=== PATIENT | female | born 1940 | race Caucasian/White ===

== ENCOUNTER 2024-09-10 09:43 | Emergency (ER) | payer MEDICARE, BC, SELFPAY ==
[2024-09-10 09:52] VITALS: BMI 27.0
[2024-09-10 09:54] VITALS: BP 145/62
[2024-09-10 09:56] VITALS: BP 145/62
[2024-09-10 10:00] VITALS: BP 157/80
--- NOTE | 2024-09-10 10:12 | ED.MUSCINJ ---
HPI-Injury
General
Chief Complaint: Fall
Source: patient
Time Seen by Provider: 09/10/24 09:58
History of Present Illness-Injury
Initial Injury comments:
84-year-old female not anticoagulated with history of dementia presents from [facility] after a fall throughout the evening. This was unwitnessed. She notes a headache. She blood coming from her head and the back. She also notes slight
neck discomfort after a fall. She denies chest pain or shortness of breath. No other complaints at this time. I spoke with her daughter who is the medical power of insurance attorney who is in the room
Past History
Past History
ED Past Medical History: None
ED Past Surgical History: None
Phy Exam
Physical Exam
Physical Exam:
General: Pleasant female no acute respiratory distress
HEENT: Normocephalic hematoma with scalp abrasion and subtle laceration noted to the posterior lateral left scalp. Pupils equal round reactive to light
Neurologic exam: Alert and oriented to person and place no facial asymmetry good strength to the upper and lower extremities
Heart: Regular rate and rhythm
Lungs: Clear no wheeze
Musculoskeletal exam: Mild diffuse paraspinous tenderness about the cervical spine. Good range of motion all extremities
Abdomen is soft nontender nondistended
Injury Course
Orders/Labs/Results
Orders:
Orders
09/10/24 10:10
CT Cervical Spine W/o Iv Contr Urgent
Comment:
Reason For Exam: fall
CT Head W/o Iv Contrast Urgent
Comment:
Reason For Exam: fall
MDM/Problems Addressed
Differential Diagnosis Includes:
Fall. Scalp abrasion with hematoma with ongoing bleeding may require skin fredrick to provide hemostasis. CT of the head and cervical spine ordered for evaluation of skull fracture versus intracranial hemorrhage or cervical spine injury
*Critical Care Note
Total Time (30-74mins, 75-104mins- exclusive of procedures): Not Applicable
Update Note
Update Note:
CT of head and cervical spine both negative for acute traumatic injuries. The wound on the left posterior scalp was cleansed with saline and closed with skin fredrick after anesthetizing with 1% lidocaine with epinephrine. 4 fredrick were required.
A dressing was applied after she was cleaned up. Stable for discharge
ED Attending Note
-
Portions of this chart may have been created with voice recognition software.� Occasional wrong word or��sound alike� substitutions may have occurred due to the inherent limitations of voice recognition software.
Discharge Plan
Departure
Patient Disposition: Home (Routine Discharge)
Date of Disposition: 09/10/24
Time of Disposition: 12:28
Patient with high blood pressure during this ER visit?: No
Discharge Problem:
Fall, Laceration
Instructions: Laceration Repair With Fredrick (DC)
Referrals:
Seferino Pond MD [Family Provider] -
Activity Restrictions/Additional Instructions:
Please have fredrick removed in 7 days. You may ice the sore spot or take Tylenol for pain. Change dressing as needed.
Interventions
Interventions:
*Risk Screen - Suicide Last Done: 09/10/24 10:01
*General Assessment Last Done: 09/10/24 10:01
*Neglect/Abuse Screening Last Done: 09/10/24 10:09
*ED COVID-19 Vaccine History Last Done: 09/10/24 10:01
ED-Musculoskeletal Assessment Last Done: 09/10/24 11:04
ED- Neurological Assessment Last Done: 09/10/24 10:37
ED-Skin Assessment Last Done: 09/10/24 10:38
Discharge Date and Time
Print Language: INDONESIAN
[2024-09-10 11:03] VITALS: BP 134/69
[2024-09-10 12:00] VITALS: BP 127/59
[2024-09-10 13:00] VITALS: BP 146/62
== END 2024-09-10 15:41 | disposition home or self-care (01) ==
LOC: EMR 09:43
PROVIDERS: EMERGENCY PHYSICIAN Emergency Medicine; FAMILY PHYSICIAN Family Medicine
DX: S01.01XA Laceration without foreign body of scalp, initial encounter (principal); W19.XXXA Unspecified fall, initial encounter; F03.90 Unspecified dementia, unspecified severity, without behavioral disturbance, psychotic disturbance, mood disturbance, and anxiety
CPT/HCPCS: 99284; 12001; 70450; 72125

== ENCOUNTER 2024-11-19 12:25 | Emergency (ER) | payer OTHER, SELFPAY ==
[2024-11-19 12:27] VITALS: BP 160/71
[2024-11-19 13:26] VITALS: BMI 26.2
--- NOTE | 2024-11-19 13:26 | ED.GENMED ---
History of Present Illness
General
Chief Complaint: Back Pain
Time Seen by Provider: 11/19/24 13:13
History of Present Illness
History of Present Illness:
84-year-old female with history of dementia presents the emergency department from [facility] for evaluation of low back pain and buttock pain after a fall 3 days ago. Was reportedly a standing height fall onto her buttocks. She was able
to ambulate up until last night when she was unable to get up out of bed. History is somewhat limited due to her mental status but she reportedly was working with physical therapy yesterday and symptoms seem to transiently improved. No lower
extremity paresthesias reported. No history of compression fracture of the lumbar spine
Past History
Past History
ED Past Medical History: None
ED Past Surgical History: None
Review of Systems
Review of Systems
Allergies reviewed?: Yes
All Other Systems: ROS reviewed and negative except as documented in HPI and ROS
Phy Exam
Physical Exam
Physical Exam:
GEN: Well appearing, NAD, WDWN
HEENT: Oral mucosa moist, no scleral icterus
Cardiac: Regular rate
Lung: No respiratory distress, no tachypnea
MSK: No gross deformity or injuries. No midline reproducible tenderness to the lumbar spine or paraspinous musculature. Bilateral hip range of motion is normal with no elicited pain. Lower extremity strength 5 out of 5 in all romero
Skin: Good color, no pallor or jaundice, no rashes
Neuro: AO x3, moves all extremities freely
Psych: Calm, cooperative
Course
Orders/Labs/Results
Orders:
Orders
11/19/24 13:26
CR Lumbar Spine Comp Min 4 Vw* Urgent
Comment:
Reason For Exam: fall
CR Pelvis - 1 Or 2 Views Urgent
Comment:
Reason For Exam: fall
11/19/24 14:51
Hydrocodone 5/APAP 325 [Groom 5/325] 1 tablet PO NOW STA
Ibuprofen [Motrin] 400 mg PO NOW STA
11/19/24 15:33
Treatment- Walker ONCE
11/19/24 15:37
Pt Eval And Treat Urgent
Activity Level: Ambulate
11/19/24 15:53
Complete Blood Count/No Diff Urgent
Comprehensive Metabolic Panel Urgent
Abnormal Lab Results
11/19/24
15:53
RBC 3.74 L 10^6/uL
(4.20-5.40)
Hgb 10.7 L g/dL
(12.0-16.0)
Hct 31.8 L %
(37.0-47.0)
RDW 14.6 H %
(11.5-14.5)
BUN 18 H mg/dl
(7-17)
Glucose 112 H mg/dl
(70-99)
11/19/24 15:53
11/19/24 15:53
Vital Signs
Initial and Last Documented VS:
Initial Vital Signs
Temp Pulse Resp BP Pulse Ox
99.2 F 59 16 160/71 97
11/19/24 12:27 11/19/24 12:27 11/19/24 12:27 11/19/24 12:27 11/19/24 12:27
Last Documented Vital Signs
Temp Pulse Resp BP Pulse Ox
99.2 F 59 16 160/71 97
11/19/24 12:27 11/19/24 12:27 11/19/24 12:27 11/19/24 12:27 11/19/24 12:27
MDM/Problems Addressed
MDM/Problems Addressed:
84-year-old female presents for back pain after fall with difficulty ambulating. She is found to have a presumably new L2 compression fracture. Evaluated in the ED after pain medication and was able to tolerate walker assisted ambulation. No
indication for admission. Recommend PT which she can obtain at her current nursing facility.
*Critical Care Note
Total Time (30-74mins, 75-104mins- exclusive of procedures): Not Applicable
ED Attending Note
-
Portions of this chart may have been created with voice recognition software.� Occasional wrong word or��sound alike� substitutions may have occurred due to the inherent limitations of voice recognition software.
Discharge Plan
Departure
Patient Disposition: Home (Routine Discharge)
Date of Disposition: 11/19/24
Time of Disposition: 16:40
Patient with high blood pressure during this ER visit?: No
Discharge Problem:
Compression fracture of L2
Instructions: Vertebral Compression Fracture ED
Prescriptions:
New
hydrocodone-acetaminophen 5-325 mg tablet
1 tab PO Q8H PRN (Reason: Pain) Qty: 8 0RF
No Action
quetiapine 25 mg Tablet
25 mg PO HSPRN PRN (Reason: anxiety)
citalopram 20 mg Tablet
20 mg PO DAILY
Referrals:
Seferino Pond MD [Family Provider] -
Activity Restrictions/Additional Instructions:
Naima has a compression fracture of her L2 vertebrae. She should work with physical therapy as indicated to improve her function. She may require repeat x-ray in 4 to 6 weeks if pain is not improving
Interventions
Interventions:
*Risk Screen - Suicide Last Done: 11/19/24 12:27
*General Assessment Last Done: 11/19/24 13:26
*Neglect/Abuse Screening Last Done: 11/19/24 12:27
ED-Musculoskeletal Assessment Last Done: 11/19/24 13:33
Discharge Date and Time
Print Language: OCCITAN
[2024-11-19] MEDS: NORCO 5/325 1 TABLET PO (14:56)
[2024-11-19] MEDS: MOTRIN 400 MG PO (14:56)
[2024-11-19 16:06] LABS: Hematocrit 31.8 % (37.0-47.0); Hemoglobin 10.7 g/dL (12.0-16.0); Mean Corp Hgb Conc. 33.6 g/dL (33.0-37.0); Mean Corpuscular Hgb 28.6 pg (27.0-31.0); Red Blood Cell Count 3.74 10^6/uL (4.20-5.40); Red Cell Dist. Width 14.6 % (11.5-14.5); White Blood Cell Count 6.7 10^3/uL (4.8-10.8)
[2024-11-19 16:26] LABS: ALT (SGPT) 22 U/L (0-35); AST (SGOT) 27 U/L (14-36); Albumin 4.5 g/dl (3.5-5.0); Alkaline Phosphatase 75 U/L (38-126); Blood Urea Nitrogen 18 mg/dl (7-17); Calcium 9.6 mg/dl (8.4-10.2); Carbon Dioxide 26 mmol/L (22-30); Chloride 105 mmol/L (98-107); Estimated Creatinine Clearance 57 ml/min; Glucose 112 mg/dl (70-99); Potassium 3.9 mmol/L (3.5-5.1); Sodium 137 mmol/L (135-145); Total Bilirubin 1.1 mg/dl (0.2-1.3); Total Protein 6.5 g/dl (6.3-8.2); eGFR > 60.00
[2024-11-19 16:42] LABS: Mean Platelet Volume 13.4 fL (7.4-10.4); Platelet Count 59 10^3/uL (130-400)
== END 2024-11-19 16:53 | disposition home or self-care (01) ==
LOC: EMR 12:25
PROVIDERS: Physician Assistant; EMERGENCY PHYSICIAN Emergency Medicine; FAMILY PHYSICIAN Family Medicine
DX: M48.56XA Collapsed vertebra, not elsewhere classified, lumbar region, initial encounter for fracture (principal); W19.XXXA Unspecified fall, initial encounter; F03.90 Unspecified dementia, unspecified severity, without behavioral disturbance, psychotic disturbance, mood disturbance, and anxiety
CPT/HCPCS: 99283; 72110; 72170; 80053; 85027

== ENCOUNTER 2025-01-06 05:20 | Emergency (ER) | payer OTHER, SELFPAY ==
[2025-01-06 05:31] VITALS: BP 151/59
[2025-01-06 06:01] VITALS: BP 139/55
[2025-01-06] MEDS: TYLENOL 500 MG PO (06:11)
[2025-01-06] MEDS: ADACEL 0.5 ML IM (06:13)
[2025-01-06 07:00] VITALS: BP 139/61; BMI 24.1
[2025-01-06 08:00] VITALS: BP 120/52
--- NOTE | 2025-01-06 09:46 | ED.GENMED ---
History of Present Illness
General
Chief Complaint: Fall
Source: patient
Exam Limitations: none
Time Seen by Provider: 01/06/25 05:47
Nursing documentation reviewed up to this point in time: agreed with
History of Present Illness
History of Present Illness:
This is a 84 year-old female with a past medical history of dementia, hyperlipidemia, anxiety, depression, who presents an emergency apartment a with concern of back pain and scalp pain following a fall. Patient is coming from the locked dementia
unit at [facility]. This morning, EMS reports that she was found down on the floor by staff this morning. Patient reports that she recalls slipping on water this morning in the bathroom. Patient sees that she�s unsure if she hit her head. She�s not
recall, losing consciousness. She currently knows upper back pain following the fall and mild posterior scalp pain. She denies any neck pain. She knows any abdominal pain. She has any pain in her extremities. She needs any chest pain. she�s unsure
of her tetanus status.
Past History
Past History
ED Past Medical History: None
ED Past Surgical History: None
Review of Systems
Review of Systems
All Other Systems: ROS reviewed and negative except as documented in HPI and ROS
Phy Exam
Physical Exam
Physical Exam:
General: Patient is well appearing and in no acute distress; non-toxic
Skin: Warm and dry, small skin tear noted to right elbow
Head: Normocephalic, atraumatic. Small abrasion noted to posterior scalp no palpable hematoma no tenderness to palpation of the facial bones.
Eyes: Sclera non-icteric. EOMs intact.
Cardiac: Regular rate and rhythm, no murmurs, no chest wall tenderness
Peripheral Vascular: No lower extremity swelling or edema
Pulm: Normal respiratory effort, no wheezes, rales, rhonchi
Abdomen: No abdominal tenderness tenderness to palpation
Musculoskeletal: Full ROM to bilateral upper and lower extremities. No bony tenderness to right wrist, elbow, shoulder. No pain with passive ROM.
Neuro: CN II-XII intact, no focal neurologic deficits.
Psychiatric: Appropriate mood and affect.
Course
Orders/Labs/Results
Orders:
Orders
01/06/25 05:[address]
CT Cervical Spine W/o Iv Contr Urgent
Comment:
Reason For Exam: midline neck pain
CT Head W/o Iv Contrast Urgent
Comment:
Reason For Exam: posterior headache, fall
01/06/25 05:54
Acetaminophen [Tylenol] 500 mg PO NOW STA
Tetanus/Diphth/Acelpertussis [Adacel] 0.5 ml IM .ONCE ONE
CR Elbow - Right Min 3 Views Urgent
Comment:
Reason For Exam: right elbow pain
01/06/25 06:00
CT Thoracic Spine W/o Iv Contr Urgent
Comment:
Reason For Exam: midline spinal tenderness
Vital Signs
Initial and Last Documented VS:
Initial Vital Signs
Temp Pulse Resp BP Pulse Ox
97.9 F 50 20 151/59 98
01/06/25 05:31 01/06/25 05:31 01/06/25 05:31 01/06/25 05:31 01/06/25 05:31
Last Documented Vital Signs
Temp Pulse Resp BP Pulse Ox
97.9 F 52 16 120/52 95
01/06/25 05:31 01/06/25 08:06 01/06/25 08:06 01/06/25 08:00 01/06/25 08:06
MDM/Problems Addressed
Differential Diagnosis Includes:
ddx include abrasion, laceration, concussion, elbow contusion, compression fracture, subdural hematoma, epidural hematoma
MDM/Problems Addressed:
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 She does not recall loosing consciousness. On
PE, she is well appearing, in no acute distress. She does have a small abrasion to right elbow and small abrasion on the scalp. No bony tenderness to palpation. Her tetanus was updated. Tylenol given for pain. CT head and neck unremarkable. CT
thoracic shows subacute compression fracture. Ortho referral provided. PAtient states that she feels well and is in no pain. Patient stable for discharge.
Chronic conditions affecting care:
see hpi
*Pulse Oximetry
Patient hypoxic: no
*Critical Care Note
Total Time (30-74mins, 75-104mins- exclusive of procedures): Not Applicable
Data Reviewed
Review of Other/Old Records Reveals: Records (reviewed previous er doc, patient seen for fall endured compression fracture reviewed documentation from 09/10/24)
Source: patient and records
ED Attending Note
-
Portions of this chart may have been created with voice recognition software.� Occasional wrong word or��sound alike� substitutions may have occurred due to the inherent limitations of voice recognition software.
Discharge Plan
Departure
Patient Disposition: Home (Routine Discharge)
Date of Disposition: 01/06/25
Time of Disposition: 07:34
Patient with high blood pressure during this ER visit?: Yes
Condition: Good
Discharge Problem:
Fall, Contusion of elbow, Compression fracture
Instructions: Vertebral compression fracture, Wound Care (DC), Fall Prevention for Older Adults
Prescriptions:
New
lidocaine 5 % adhesive patch,medicated
1 patch topical DAILY Qty: 15 0RF
No Action
quetiapine 25 mg Tablet
25 mg PO HSPRN PRN (Reason: anxiety)
citalopram 20 mg Tablet
20 mg PO DAILY
Referrals:
Shireen Kat I., DO [Active] - Call in 1-3 days for appt
Seferino Pond MD [Family Provider] -
Activity Restrictions/Additional Instructions:
Your CT scan thoracic spine showed a subacute L2 vertebral compression fracture. You can take Tylenol as needed for this. Lidocaine patches have been also sent to your pharmacy and can be applied to the affected area. You can apply 1 patch once
daily. Please remove after 12 hours.
Your tetanus was updated today. Your CT scan showed no intracranial abnormality. Your elbow x-ray did not show any evidence of fracture.
PLEASE RETURN TO THE DEPARTMENT SHOULD YOU DEVELOP ANY ACUTE WORSENING OR SYMPTOMS, INCREASING PAIN, DIFFICULTY AMBULATING, LOSS OF CONSCIOUSNESS, DIZZINESS, LIGHTHEADEDNESS, INCREASING PAIN, LOSS OF SENSATION, OR ANY OTHER SIGNS OR SYMPTOMS
WORRISOME TO YOU.
Interventions
Interventions:
*Risk Screen - Suicide Last Done: 01/06/25 05:31
*General Assessment Last Done: 01/06/25 05:31
*Neglect/Abuse Screening Last Done: 01/06/25 05:31
*ED- Fall Risk Assessment Last Done: 01/06/25 05:31
*ED COVID-19 Vaccine History Last Done: 01/06/25 05:31
*Nursing Disposition Last Done: 01/06/25 08:21
ED-Musculoskeletal Assessment Last Done: 01/06/25 05:52
ED- Neurological Assessment Last Done: 01/06/25 05:52
ED-Skin Assessment Last Done: 01/06/25 06:10
Discharge Date and Time
Print Language: PALAUAN
== END 2025-01-06 10:11 | disposition home or self-care (01) ==
LOC: EMR 05:20
PROVIDERS: EMERGENCY PHYSICIAN Emergency Medicine; FAMILY PHYSICIAN Family Medicine
DX: S50.01XA Contusion of right elbow, initial encounter (principal); S00.01XA Abrasion of scalp, initial encounter; S22.000A Wedge compression fracture of unspecified thoracic vertebra, initial encounter for closed fracture; W01.0XXA Fall on same level from slipping, tripping and stumbling without subsequent striking against object, initial encounter; F03.93 Unspecified dementia, unspecified severity, with mood disturbance; E78.5 Hyperlipidemia, unspecified; F32.A Depression, unspecified; Z23 Encounter for immunization
CPT/HCPCS: 99285; 90471; 70450; 72125; 72128; 73080; 90715

== ENCOUNTER 2025-03-18 11:19 | Emergency (ER) | payer OTHER, SELFPAY ==
[2025-03-18 11:20] VITALS: BMI 28.5
[2025-03-18 11:32] VITALS: BP 153/61
[2025-03-18 12:00] VITALS: BP 144/60
[2025-03-18 12:22] LABS: Hematocrit 34.6 % (37.0-47.0); Hemoglobin 11.2 g/dL (12.0-16.0); Mean Corp Hgb Conc. 32.4 g/dL (33.0-37.0); Mean Corpuscular Volume 87.8 fL (81.0-99.0); Nucleated Red Blood Cells % 0 %; Red Cell Dist. Width 15.3 % (11.5-14.5)
[2025-03-18 12:32] LABS: ALT (SGPT) 13 U/L (0-35); AST (SGOT) 16 U/L (14-36); Albumin 4.5 g/dl (3.5-5.0); Alkaline Phosphatase 51 U/L (38-126); Blood Urea Nitrogen 22 mg/dl (7-17); Calcium 9.7 mg/dl (8.4-10.2); Carbon Dioxide 27 mmol/L (22-30); Chloride 107 mmol/L (98-107); Estimated Creatinine Clearance 56 ml/min; Glucose 125 mg/dl (70-99); Potassium 4.1 mmol/L (3.5-5.1); Sodium 139 mmol/L (135-145); Total Protein 6.5 g/dl (6.3-8.2); eGFR > 60.00
[2025-03-18 12:48] LABS: Platelet Count 71 10^3/uL (130-400)
[2025-03-18 13:00] VITALS: BP 151/63
--- NOTE | 2025-03-18 13:43 | ED.GENMED ---
History of Present Illness
General
Chief Complaint: Fall
Source: patient and family
Exam Limitations: dementia
Time Seen by Provider: 03/18/25 13:25
Nursing documentation reviewed up to this point in time: agreed with
History of Present Illness
History of Present Illness:
84-year-old female from dementia facility accompanied by her daughter provides most of the history
Patient is at her baseline mental status she is on no blood thinners she is cooperative she apparently fell struck the right side of her face her right shoulder her right hand possibly her right hip she denies any pain
Past History
Past History
ED Past Medical History: Other (Dementia)
Social History
Tobacco: Non-smoker
Alcohol: None
Drug: None
Living: detention
Employment: Not employed
Family History
Family History: Unable to obtain (Dementia)
Review of Systems
Review of Systems
Unable to obtain full review of systems at this time due to: dementia
Other source history: family
All Other Systems: Not applicable
Phy Exam
Physical Exam
Physical Exam:
Physical Exam
General: no apparent distress, not acutely ill
Neck: Abrasion on the right mid face and forehead
Heart: Regular
Lungs: no acute respiratory distress. clear bilaterally
Neuro: Demented moves all extremities
Skin: no rash
Psychiatric: well kept. interactive and cooperative
Extremities: Bruising on the right shoulder with no pain bruising the base of the small finger with no pain no pain with range of motion of the hip
Course
Orders/Labs/Results
Orders:
Orders
03/18/25 12:10
CBC/With Diff [Complete Blood Count/With Diff] Urgent
Comprehensive Metabolic Panel Urgent
03/18/25 13:32
Hand, Right 3 View [CR Hand - Right Min 3 Views] Urgent
Comment:
Reason For Exam: fall
Humerus, Right 2 Views [CR Humerus - Right Min 2 View*] Urgent
Comment:
Reason For Exam: fall
03/18/25 13:33
CT Cervical Spine W/o Iv Contr Urgent
Comment:
Reason For Exam: fall
CT Head W/o Iv Contrast Urgent
Comment:
Reason For Exam: fall
Cardiac Monitoring- Treatment ONCE
CR Pelvis - 1 Or 2 Views Urgent
Comment:
Reason For Exam: fall
03/18/25 14:19
Hand, Right 3 View [CR Hand - Right Min 3 Views] Urgent
Comment:
Reason For Exam: fall
Humerus, Right 2 Views [CR Humerus - Right Min 2 View*] Urgent
Comment:
Reason For Exam: fall
03/18/25 14:20
Pelvis, 1 or 2 Views CR [CR Pelvis - 1 Or 2 Views ] Urgent
Comment:
Reason For Exam: fall
Abnormal Lab Results
03/18/25
12:10
WBC 4.4 L 10^3/uL
(4.8-10.8)
RBC 3.94 L 10^6/uL
(4.20-5.40)
Hgb 11.2 L g/dL
(12.0-16.0)
Hct 34.6 L %
(37.0-47.0)
MCHC 32.4 L g/dL
(33.0-37.0)
RDW 15.3 H %
(11.5-14.5)
Plt Count 71 L 10^3/uL
(130-400)
MPV 13.1 H fL
(7.4-10.4)
Abs Immat Gran (auto) 0.1 H 10^3/uL
(0-0.05)
Immature Gran % 2.7 H %
(0-0.5)
Monocytes % 10.7 H %
(1.7-9.3)
BUN 22 H mg/dl
(7-17)
Glucose 125 H mg/dl
(70-99)
03/18/25 12:10
03/18/25 12:10
Vital Signs
Initial and Last Documented VS:
Initial Vital Signs
BP
153/61
03/18/25 11:32
Last Documented Vital Signs
Pulse Resp BP Pulse Ox
53 11 145/66 98
03/18/25 15:00 03/18/25 15:00 03/18/25 15:00 03/18/25 15:00
MDM/Problems Addressed
Differential Diagnosis Includes:
Slip and fall close head injury C-spine injury humerus fracture hand fracture pelvic fracture
MDM/Problems Addressed:
Fall
Chronic conditions affecting care:
Dementia
Acute Exacerbation and/or Progression of Chronic Illness:
Dementia
*Radiology
Radiology exam reviewed: radiology read reviewed
*Pulse Oximetry
SaO2: 95
Oxygen Mode of Delivery: Room air
Patient hypoxic: no
*Physician Industrial Interpretation
Rate: normal
Interpretation: normal
Heart Rate: 78
Rhythm: sinus
*Critical Care Note
Total Time (30-74mins, 75-104mins- exclusive of procedures): Not Applicable
Update Note
Update Note:
3:15 PM
Updated images noted reports noted of the CTs no obvious fracture labs noted
ED Attending Note
-
Portions of this chart may have been created with voice recognition software.� Occasional wrong word or��sound alike� substitutions may have occurred due to the inherent limitations of voice recognition software.
Discharge Plan
Departure
Patient Disposition: Home (Routine Discharge)
Date of Disposition: 03/18/25
Time of Disposition: 15:15
Patient with high blood pressure during this ER visit?: No
Condition: Good
Discharge Problem:
Fall
Instructions: Head Injury in Adults (DC), Preventing falls in adults, Contusion (DC)
Prescriptions:
No Action
quetiapine 25 mg Tablet
25 mg PO HSPRN PRN (Reason: anxiety)
citalopram 20 mg Tablet
20 mg PO DAILY
lidocaine 5 % adhesive patch,medicated
1 patch topical DAILY Qty: 15 0RF
Referrals:
Kaitlin Brownlee DO [Family Provider, General]
Interventions
Interventions:
*Risk Screen - Suicide Last Done: 03/18/25 11:29
*Neglect/Abuse Screening Last Done: 03/18/25 11:29
*ED- Fall Risk Assessment Last Done: 03/18/25 11:29
*ED COVID-19 Vaccine History Last Done: 03/18/25 11:38
ED-Musculoskeletal Assessment Last Done: 03/18/25 11:29
ED- Neurological Assessment Last Done: 03/18/25 11:29
ED-Skin Assessment Last Done: 03/18/25 11:38
Discharge Date and Time
Print Language: SLOVAK
[2025-03-18 15:00] VITALS: BP 145/66
[2025-03-18] MEDS: TYLENOL 650 MG PO (15:27)
== END 2025-03-18 15:54 | disposition home or self-care (01) ==
LOC: EMR 11:19
PROVIDERS: EMERGENCY PHYSICIAN Emergency Medicine; FAMILY PHYSICIAN Hospitalist
DX: R41.82 Altered mental status, unspecified (principal); F03.90 Unspecified dementia, unspecified severity, without behavioral disturbance, psychotic disturbance, mood disturbance, and anxiety; W19.XXXA Unspecified fall, initial encounter
CPT/HCPCS: 99284; 70450; 72125; 72170; 73060; 73130; 80053; 85025

== ENCOUNTER 2025-03-31 12:21 | Emergency (ER) | payer OTHER, SELFPAY ==
[2025-03-31 12:22] VITALS: BP 141/62
[2025-03-31 13:00] LABS: Hematocrit 30.4 % (37.0-47.0); Hemoglobin 10.0 g/dL (12.0-16.0); Mean Corp Hgb Conc. 32.9 g/dL (33.0-37.0); Mean Corpuscular Volume 88.6 fL (81.0-99.0); Nucleated Red Blood Cells % 0 %; Platelet Count 74 10^3/uL (130-400); Red Cell Dist. Width 15.4 % (11.5-14.5)
[2025-03-31 13:24] LABS: ALT (SGPT) 14 U/L (0-35); AST (SGOT) 17 U/L (14-36); Albumin 4.8 g/dl (3.5-5.0); Alkaline Phosphatase 63 U/L (38-126); Blood Urea Nitrogen 27 mg/dl (7-17); Calcium 9.8 mg/dl (8.4-10.2); Carbon Dioxide 21 mmol/L (22-30); Chloride 108 mmol/L (98-107); Glucose 89 mg/dl (70-99); Potassium 4.4 mmol/L (3.5-5.1); Sodium 138 mmol/L (135-145); Total Protein 6.8 g/dl (6.3-8.2); eGFR > 60.00
[2025-03-31 16:01] VITALS: BMI 24.1
--- NOTE | 2025-03-31 16:07 | ED.GENMED ---
History of Present Illness
General
Chief Complaint: Skin Surface Trauma
Time Seen by Provider: 03/31/25 15:48
History of Present Illness
History of Present Illness:
Patient presents to the emergency department with right lower extremity bruising and pain. Patient has a history of dementia and lives at a memory facility. She had a fall 2 weeks ago on March 18. She apparently struck the right side of her face
right shoulder and right leg. At that time she had x-rays of the hand humerus as well as CTs of the head and cervical spine. She also had an x-ray of her pelvis. She has been ambulatory since then. Staff note significant bruising to the right
leg from the knee distally.
Past History
Past History
ED Past Medical History: None and Other
ED Past Surgical History: None
Social History
Tobacco: Non-smoker
Alcohol: None
Drug: None
Living: alf
Employment: Not employed
Family History
Family History: Unable to obtain (Dementia)
Phy Exam
Physical Exam
Physical Exam:
GENERAL APPEARANCE: NAD, well developed/ well nourished
EYES lids/conjunctiva normal, PERRLA, EOMI
EARS/NOSE/THROAT Airway intact, no bleeding or intraoral trauma,
HEAD/NECK normocephalic, old appearing bruising to right frontal region.
RESPIRATORY respiratory effort normal, speaks in full sentences, no accessory muscle use. Lungs clear to auscultation without rhonchi, wheezes, rales
CARDIAC Regular rate and rhythm
ABDOMINAL Soft, ND/NT. No bruising
MUSCLES/EXTREMITIES there is bruising and swelling to the right leg from the knee distally. There is a small joint effusion. She has full range of motion of the knee without significant pain. Melva and drawer testing negative. There is
dependent bruising into the foot. There is no point tenderness in the right ankle. Palpable pedal pulses. Sensation intact to light touch throughout. 5 out of 5 dorsiflexion/ plantarflexion
PELVIS No tenderness
BACK No tenderness or visible trauma
SKIN Warm, pink and dry.
NEUROLOGICAL pleasantly confused. Normal level of consciousness. 5/5 strength in all extremities.
Course
Orders/Labs/Results
Orders:
Orders
03/31/25 12:26
Complete Blood Count/With Diff Urgent
Comprehensive Metabolic Panel Urgent
03/31/25 16:05
CR Ankle - Right Min 3 Views * Urgent
Comment:
Reason For Exam: trauma
CR Knee- Right 4 Or More View* Urgent
Comment:
Reason For Exam: bruising, pain
CR Leg Tibia/fibula Right 2 Vw Urgent
Comment:
Reason For Exam: trauma
US Legs, Right [US Periph Venous LOWER Ext RT] Urgent
Comment:
Reason For Exam: recent injury, swelling
Abnormal Lab Results
03/31/25
12:26
WBC 4.4 L 10^3/uL
(4.8-10.8)
RBC 3.43 L 10^6/uL
(4.20-5.40)
Hgb 10.0 L g/dL
(12.0-16.0)
Hct 30.4 L %
(37.0-47.0)
MCHC 32.9 L g/dL
(33.0-37.0)
RDW 15.4 H %
(11.5-14.5)
Plt Count 74 L 10^3/uL
(130-400)
MPV 12.8 H fL
(7.4-10.4)
Abs Immat Gran (auto) 0.1 H 10^3/uL
(0-0.05)
Absolute Lymphs (auto) 1.0 L 10^3/uL
(1.2-3.4)
Immature Gran % 3.2 H %
(0-0.5)
Monocytes % 10.8 H %
(1.7-9.3)
Chloride 108 H mmol/L
(98-107)
Carbon Dioxide 21 L mmol/L
(22-30)
BUN 27 H mg/dl
(7-17)
03/31/25 12:26
03/31/25 12:26
Vital Signs
Initial and Last Documented VS:
Initial Vital Signs
Temp Pulse Resp BP Pulse Ox
98.2 F 57 16 141/62 96
03/31/25 12:22 03/31/25 12:22 03/31/25 12:22 03/31/25 12:22 03/31/25 12:22
Last Documented Vital Signs
Temp Pulse Resp BP Pulse Ox
98.2 F 55 14 147/65 99
03/31/25 12:22 03/31/25 18:00 03/31/25 18:00 03/31/25 18:00 03/31/25 18:00
*Pulse Oximetry
SaO2: 96
Oxygen Mode of Delivery: Room air
Patient hypoxic: no
*Critical Care Note
Total Time (30-74mins, 75-104mins- exclusive of procedures): Not Applicable
ED Attending Note
ED Attending Note
ED Attending Note:
Patient presents with ecchymosis to the right lower extremity after a fall 2 weeks ago. This appears to be dependent ecchymosis from a small hematoma to the right anterior knee. This does not appear infected at this time as it is not warm or red.
Patient has no fever. There is no DVT on ultrasound. No fracture identified on x-ray. Will recommend elevation and compression and follow-up with orthopedics as needed.
-
Portions of this chart may have been created with voice recognition software.� Occasional wrong word or��sound alike� substitutions may have occurred due to the inherent limitations of voice recognition software.
Discharge Plan
Departure
Patient Disposition: Assisted Living
Date of Disposition: 03/31/25
Time of Disposition: 18:20
Discharge Problem:
Traumatic ecchymosis of lower leg
Instructions: Taking care of bruises
Prescriptions:
No Action
quetiapine 25 mg Tablet
25 mg PO HSPRN PRN (Reason: anxiety)
citalopram 20 mg Tablet
20 mg PO DAILY
lidocaine 5 % adhesive patch,medicated
1 patch topical DAILY Qty: 15 0RF
Referrals:
Talha Gonzalez MD [Active, Orthopedics]
UNKNOWN - PT DOES,NOT KNOW [Unknown Provider]
Activity Restrictions/Additional Instructions:
Keep leg elevated as much as possible. He can wear compression stockings to help reduce the swelling. There is no fracture identified on x-rays. There is no blood clot on the ultrasound. This will likely heal and resolve with time. There was a
small hematoma to the front of the knee which is a small collection of blood. This should reabsorb over time. Please follow-up with orthopedics if you are still having issues in the next few weeks.
Interventions
Interventions:
*Risk Screen - Suicide Last Done: 03/31/25 12:23
*General Assessment Last Done: 03/31/25 16:04
*Neglect/Abuse Screening Last Done: 03/31/25 12:23
*ED- Fall Risk Assessment Last Done: 03/31/25 16:04
*ED COVID-19 Vaccine History Last Done: 03/31/25 16:04
*Nursing Disposition Last Done: 03/31/25 18:45
ED-Skin Assessment Last Done: 03/31/25 16:04
Discharge Date and Time
Discharge Date/Time: 03/31/25 18:48
Print Language: FRISIAN
[2025-03-31 18:00] VITALS: BP 147/65
== END 2025-03-31 18:48 ==
LOC: EMR 12:21
PROVIDERS: Student in an Organized Health Care Education/Training Program; EMERGENCY PHYSICIAN Emergency Medicine; FAMILY PHYSICIAN Hospitalist
DX: S80.11XA Contusion of right lower leg, initial encounter (principal); F03.90 Unspecified dementia, unspecified severity, without behavioral disturbance, psychotic disturbance, mood disturbance, and anxiety; W19.XXXA Unspecified fall, initial encounter; Y92.129 Unspecified place in nursing home as the place of occurrence of the external cause
CPT/HCPCS: 99284; 73564; 73590; 73610; 80053; 85025; 93971

== ENCOUNTER 2025-07-27 00:25 | Emergency (ER) | payer OTHER, SELFPAY ==
[2025-07-27 00:31] VITALS: BP 157/63
[2025-07-27 00:38] VITALS: BP 157/63
--- NOTE | 2025-07-27 00:44 | ED.GENMED ---
History of Present Illness
<Dara Jerez MD, Resident - Last Filed: 07/27/25 03:18>
General
Chief Complaint: Fall
Source: patient, family and ambulance crew
Exam Limitations: dementia
Time Seen by Provider: 07/27/25 00:29
Nursing documentation reviewed up to this point in time: agreed with
History of Present Illness
History of Present Illness:
84yo F with a hx of dementia and bilateral hip replacements who presents from [facility] s/p fall.
Staff found her on the ground, not sure how long down. Pt unable to recall mechanism of fall or preceding sx or where she fell/if she had head trauma. AOx1 (self). Pt states she is not in any pain as long as she doesn't move. Unable to specify where
is painful when she moves, states that she has bruises from falls. Pt with hx of multiple prior falls within the last yr. Was last seen at ED in February & March 2025 following falls; there were no fractures or ICH at those points in time (R
humerus, R hand, C spine, pelvis, R ankle/tibia/fibula/knee). Per daughter, pt had another fall a week ago, at which point she scraped/bruised her R knee. Not on any blood thinners.
Past History
<Dara Jerez MD, Resident - Last Filed: 07/27/25 03:18>
Past History
ED Past Medical History: None and Other
ED Past Surgical History: None
Social History
Tobacco: Non-smoker
Alcohol: None
Drug: None
Living: assisted
Employment: Not employed
Family History
Family History: Unable to obtain (Dementia)
Review of Systems
<Dara Jerez MD, Resident - Last Filed: 07/27/25 03:18>
Review of Systems
Unable to obtain full review of systems at this time due to: dementia
All Other Systems: ROS reviewed and negative except as documented in HPI and ROS
Constitutional: Reports no symptoms
EENT: Reports no symptoms
Respiratory: Reports no symptoms
Cardiac: Reports no symptoms
ABD/GI: Reports no symptoms
: Reports no symptoms
Musculoskeletal: Reports joint pain and muscle pain
Skin: Reports other (ecchymosis)
Neurological: Reports no symptoms
Hematologic/Lymphatic: Reports bruising
Psychiatric: Reports no symptoms
Phy Exam
<Dara Jerez MD, Resident - Last Filed: 07/27/25 03:18>
General Physical Exam
General Presentation: no apparent distress
General age: appears stated age
General Skin: warm, dry and other (ecchymosis on R elbow )
General Habitus: elderly
General Mental: usual mental status (responds to Qs )
Eye Exam
Eye Exam: PERRL and EOMI
Cardiovascular Exam
Cardiovascular Exam: regular rate/rhythm, no edema and no murmur
Heart Sounds: normal
Pulmonary Exam
Pulmonary Exam: lungs clear (anteriorly) and no respiratory distress
Gastrointestinal Exam
Gastrointestinal Exam: non tender, soft and non distended
Neurological Exam
Neurological Exam: alert, confused and other (aox1 (self) )
Musculoskeletal Exam
Musculoskeletal Exam: no edema, joint swelling (some erythema/warmth and healing scab on R anterior/inferior knee ) and other (tender to palpation over lateral R hip and R elbow; all other joints nontender; ROM of neck full; passive flexion of
bilateral hips without pain )
Skin Exam
Skin Exam: other (ecchymosis R elbow)
Psychiatric Exam
Psychiatric Exam: normal mood/affect
Course
<Dara Jerez MD, Resident - Last Filed: 07/27/25 03:18>
Orders/Labs/Results
Orders:
Orders
07/27/25 01:11
CT Head W/o Iv Contrast Urgent
Comment:
Reason For Exam: fall
Elbow, 3 View, Right [CR Elbow - Right Min 3 Views] Stat
Comment:
Reason For Exam: fall
07/27/25 00:27
07/27/25 00:27
Vital Signs
Initial and Last Documented VS:
Initial Vital Signs
BP
157/63
07/27/25 00:31
Last Documented Vital Signs
Temp Pulse Resp BP Pulse Ox
97.6 F 49 15 138/56 98
07/27/25 00:38 07/27/25 03:15 07/27/25 03:15 07/27/25 03:03 07/27/25 03:15
<Ariana Fritz DO - Last Filed: 07/27/25 03:44>
Orders/Labs/Results
Orders:
Orders
07/27/25 01:11
CT Head W/o Iv Contrast Urgent
Comment:
Reason For Exam: fall
Elbow, 3 View, Right [CR Elbow - Right Min 3 Views] Stat
Comment:
Reason For Exam: fall
07/27/25 00:27
07/27/25 00:27
Vital Signs
Initial and Last Documented VS:
Initial Vital Signs
BP
157/63
07/27/25 00:31
Last Documented Vital Signs
Temp Pulse Resp BP Pulse Ox
97.6 F 49 15 138/56 98
07/27/25 00:38 07/27/25 03:15 07/27/25 03:15 07/27/25 03:03 07/27/25 03:15
<Dara Jerez MD, Resident - Last Filed: 07/27/25 03:18>
MDM/Problems Addressed
Differential Diagnosis Includes:
R/o ICH, although no focal neuro deficits but pt unable to report if hit head, confused/dementia at baseline
C-spine nexus score 0, low likelihood cervical spine injury
R hip replaced, risk of periprosthetic fracture R hip
R elbow with
R knee with erythema/warmth, no purulence; r/o cellulitis
R elbow tender but with old-appearing bruising, radiograph of R elbow/humerus on 03/18/25 following fall without issue at that point
MDM/Problems Addressed:
- XR R elbow
- CT head without contrast
<Dara Jerez MD, Resident - Last Filed: 07/27/25 03:18>
*Pulse Oximetry
Patient hypoxic: no
*Critical Care Note
Total Time (30-74mins, 75-104mins- exclusive of procedures): Not Applicable
<Dara Jerez MD, Resident - Last Filed: 07/27/25 03:18>
Update Note
Update Note:
XR R elbow negative for fracture
CT head without signs of ICH
ED Attending Note
<Dara Jerez MD, Resident - Last Filed: 07/27/25 03:18>
-
Portions of this chart may have been created with voice recognition software.� Occasional wrong word or��sound alike� substitutions may have occurred due to the inherent limitations of voice recognition software.
<Ariana Fritz DO - Last Filed: 07/27/25 03:44>
ED Attending Note
Patient seen and examined by attending physician: Yes
I performed a history and physical exam of patient and discussed management with resident, I reviewed resident's note and agree with documented findings and plan of care.: Yes
ED Attending Note:
This is an 84-year-old woman with history of Alzheimer's dementia, resides in a memory care unit. She has history of frequent falls and suffered a mechanical fall 1 week ago with resulting bruising on her right lateral elbow and skin abrasion and
contusion of her right knee.
Daughter who is at bedside admits that mom does suffer with somewhat frequent falls and the general rule is for assisted staff to contact the daughter first prior to transport to the ED. She did not require ED visit after last week's fall and
has been at her baseline until suffering an unwitnessed fall tonight. correction staff believe she attempted to get out of bed and fell. She was found next to her bed.
She is not maintained on anticoagulants.
She is brought to the ED via EMS. Daughter was not notified of fall until after EMS arrival.
84-year-old woman appears her stated age, awake and alert, pleasantly confused. Poor historian as to recent events.
HEENT: The head is normocephalic, atraumatic. TMs are clear bilaterally. Oral mucosa is moist.
Neck is supple, no bony tenderness, full range of motion without difficulty nor pain.
Heart is regular rate and rhythm. No chest wall tenderness.
Lungs are clear to auscultation. No respiratory distress.
Abdomen is soft without appreciable tenderness.
Extremities: There is subacute/resolving purple to greenish ecchymosis right posterolateral elbow with mild to moderate tenderness posterior lateral elbow. Full range of motion with mildly increased pain with supination/pronation.
The right knee has a subacute scabbed skin abrasion anterior aspect with mild surrounding erythema and mild soft tissue swelling. No significant palpable tenderness. No palpable heat. Full knee range of motion without difficulty. There is full
hip range of motion bilaterally without difficulty. No palpable bony pelvic tenderness. Full range of motion of bilateral shoulders without difficulty.
Peripheral pulses are full and equal. Sensation and strength intact.
Due to advanced age, unwitnessed fall, concern for occult head injury thus we will check CT of the head.
Subacute bruising and contusion to right elbow but somewhat moderately tender thus concern for occult fracture. Will x-ray the right elbow.
03:15
Right elbow x-ray shows no evidence of fracture.
CT of the head shows no acute traumatic findings.
Will discharge back to assisted/memory care unit.
Discharge Plan
Departure
Patient Disposition: [facility]/SNF
Date of Disposition: 07/27/25
Time of Disposition: 03:17
Patient with high blood pressure during this ER visit?: No
Condition: Good
Covid-19: Not Applicable
Discharge Problem:
Fall, resolving right elbow contusion, subacute right knee abrasion
Instructions: Preventing falls in adults, Contusion (DC)
Prescriptions:
No Action
quetiapine 25 mg Tablet
25 mg PO HSPRN PRN (Reason: anxiety)
citalopram 20 mg Tablet
20 mg PO DAILY
lidocaine 5 % adhesive patch,medicated
1 patch topical DAILY Qty: 15 0RF
Referrals:
Kaitlin Brownlee, [Family Provider, General] - Call in 1-3 days for appt
Activity Restrictions/Additional Instructions:
You were seen in the ED following a fall. Xray of your R elbow showed no fractures. CT scan of the head did not show any bleeding in the brain.
Please return if you have any episodes of falling with head trauma followed by new vision changes, headache, nausea/vomiting, weakness or numbness.
Interventions
Interventions:
*Risk Screen - Suicide Last Done: 07/27/25 00:48
*General Assessment Last Done: 07/27/25 00:57
*Neglect/Abuse Screening Last Done: 07/27/25 00:48
*ED COVID-19 Vaccine History Last Done: 07/27/25 00:47
*ED Influenza Vaccine History Last Done: 07/27/25 00:47
[facility] Fall Risk Assessment Tool Last Done: 07/27/25 00:52
ED-Musculoskeletal Assessment Last Done: 07/27/25 00:52
ED- Neurological Assessment Last Done: 07/27/25 00:52
ED-Skin Assessment Last Done: 07/27/25 00:52
Discharge Date and Time
Print Language: MOROCCAN
[2025-07-27 01:00] VITALS: BP 148/66
[2025-07-27 02:00] VITALS: BP 126/51
[2025-07-27 03:03] VITALS: BP 138/56
== END 2025-07-27 04:48 ==
LOC: EMR 00:25
PROVIDERS: EMERGENCY PHYSICIAN Emergency Medicine; FAMILY PHYSICIAN Hospitalist
DX: Z04.3 Encounter for examination and observation following other accident (principal); S50.01XA Contusion of right elbow, initial encounter; S80.211A Abrasion, right knee, initial encounter; G30.9 Alzheimer's disease, unspecified; F02.80 Dementia in other diseases classified elsewhere, unspecified severity, without behavioral disturbance, psychotic disturbance, mood disturbance, and anxiety; Z91.81 History of falling; Z96.643 Presence of artificial hip joint, bilateral; W19.XXXA Unspecified fall, initial encounter; Y92.129 Unspecified place in nursing home as the place of occurrence of the external cause
CPT/HCPCS: 99284; 70450; 73080